=== PATIENT | male | born 1950 | race Caucasian/White ===

== ENCOUNTER 2016-06-02 09:11 | Emergency (ER) | payer OTHER ==
[~2016-06-02] VITALS: Ht 167.6 cm; Wt 141.2 kg
[2016-06-02 09:53] VITALS: BP 165/88
== END 2016-06-02 09:58 | disposition home or self-care (01) ==
LOC: EME 09:11 → EXP 09:11
DX: M26.622 Arthralgia of left temporomandibular joint (principal)
CPT/HCPCS: 99281; 99283